=== PATIENT | female | born 1985 | race Caucasian/White ===

== ENCOUNTER 2016-12-28 11:25 | Inpatient (IN) | payer OTHER ==
[2016-12-28 12:22] VITALS: BMI 26.1
--- NOTE | 2016-12-28 17:13 | HP ---
CIWA Score - CIWA Score Nausea/Vomitin-Mild Nausea/No Vomiting Muscle Tremors: 4-Moderate,w/Arms Extend Anxiety: 4-Mod. Anxious/Guarded Agitation: 4-Moderately Restless Paroxysmal Sweats: 3 Orientation: 0-Oriented Tacttile Disturbances: 0-None Auditory Disturbances: 0-None Visual Disturbances: 0-None Headache: 1-Very Mild CIWA-Ar Total Score: 17 Admission ROS BHS - HPI Chief Complaint: I was drinking so much that I passed out and was sent to the ED now I need detox. Allergies/Adverse Reactions: Allergies Allergy/AdvReac Type Severity Reaction Status Date / Time Fish Containing Products Allergy Intermediate Rash Verified 12/28/16 16:33 History of Present Illness: Pt is a 31yr old female with a history of alcohol dependence seeking detox for treatment. Pt states she had been drinking for a week and her mother found her passed out. Her mom send her to [facility] ED. pt was d/c yesterday and is her for detox. Exam Limitations: No Limitations - Ebola screening Have you traveled outside of the country in the last 21 days: No Have you had contact with anyone from an Ebola affected area: No Have you been sick,other than usual withdrawal symptoms: No Do you have a fever: No - Review of Systems Constitutional: Chills, Diaphoresis, Night Sweats, Changes in sleep EENT: reports: Tearing Respiratory: reports: No Symptoms reported Cardiac: reports: Lightheadedness, Syncope GI: reports: Diarrhea, Nausea, Poor Appetite, Poor Fluid Intake, Vomiting, Abdominal cramping : reports: No Symptoms Reported Musculoskeletal: reports: Back Pain, Joint Pain, Muscle Pain, Neck Pain Integumentary: reports: Flushing, Sweating Neuro: reports: Headache, Tingling, Tremors Endocrine: reports: Excessive Sweating, Flushing, Intolerance to Cold, Intolerance to Heat Hematology: reports: No Symptoms Reported Psychiatric: reports: Judgement Intact, Mood/Affect Appropiate, Orientated x3, Agitated, Anxious Other Systems: Reviewed and Negative Patient History - Patient Medical History Hx Anemia: No Hx Asthma: No Hx Chronic Obstructive Pulmonary Disease (COPD): No Hx Cancer: No Hx Cardiac Disorders: No Hx Congestive Heart Failure: No Hx Hypertension: No Hx Hypercholesterolemia: No Hx Pacemaker: No HX Cerebrovascular Accident: No Hx Seizures: No Hx Dementia: No Hx Diabetes: No Hx Gastrointestinal Disorders: No Hx Liver Disease: No Hx Genitourinary Disorders: No Hx Sexually Transmitted Disorders: No Hx Renal Disease (ESRD): No Hx Thyroid Disease: No Hx Human Immunodeficiency Virus (HIV): No (negative) Hx Hepatitis C: No (negative) Hx Depression: Yes Hx Suicide Attempt: Yes (tried to cut self years ago but denies any S/H ideation today) Hx Bipolar Disorder: No Hx Schizophrenia: No - Patient Surgical History Past Surgical History: No Hx Neurologic Surgery: No Hx Cataract Extraction: No Hx Cardiac Surgery: No Hx Lung Surgery: No Hx Breast Surgery: No Hx Breast Biopsy: No Hx Abdominal Surgery: No Hx Appendectomy: No Hx Cholecystectomy: No Hx Genitourinary Surgery: No Hx Section: No Hx Orthopedic Surgery: Yes (left hip fx plate placed 11/2015) Anesthesia Reaction: No - PPD History Previous Implant?: Yes Documented Results: Negative w/o proof PPD to be Administered?: Yes - Reproductive History Patient is a Female of Child Bearing Age (11 -55 yrs old): Yes Last Menstrual Period: 12/25/16 Patient : No - Smoking Cessation Smoking history: Current every day smoker Have you smoked in the past 12 months: Yes Aproximately how many cigarettes per day: 10 Cigars Per Day: 0 Hx Chewing Tobacco Use: No Initiated information on smoking cessation: Yes 'Breaking Loose' booklet given: 12/28/16 - Substance & Tx. History Hx Alcohol Use: Yes Hx Substance Use: No Substance Use Type: Alcohol Hx Substance Use Treatment: Yes - Substances Abused Alcohol Route: Oral Frequency: Daily Amount used: RUM- 1 LITRE Age of first use: 13 Date of Last Use: 12/28/16 Family Disease History - Family Disease History Family History: Denies Admission Physical Exam S - Vital Signs Vital Signs: Vital Signs - 24 hr 12/28/16 12:21 Temperature 99.1 F Pulse Rate 118 H Respiratory 20 Rate Blood Pressure 133/71 - Physical General Appearance: Yes: Appropriately Dressed, Moderate Distress, Tremorous, Irritable, Sweating, Anxious HEENTM: Yes: Normal Voice, Nasal Congestion Respiratory: Yes: Lungs Clear, Normal Breath Sounds, No Respiratory Distress Neck: Yes: No masses,lesions,Nodules Breast: Yes: Within Normal Limits Cardiology: Yes: Regular Rhythm, Regular Rate, S1, S2 Abdominal: Yes: Normal Bowel Sounds, Non Tender, Soft Genitourinary: Yes: Within Normal Limits Back: Yes: Normal Inspection Musculoskeletal: Yes: full range of Motion, Back pain Extremities: Yes: Normal Inspection, Non-Tender, Tremors Neurological: Yes: Fully Oriented, Alert, Normal Response Integumentary: Yes: Normal Color, Diaphoresis Lymphatic: Yes: Within Normal Limits - Diagnostic (1) Alcohol dependence with uncomplicated withdrawal Current Visit: Yes Status: Chronic (2) Nicotine dependence Current Visit: Yes Status: Chronic Qualifiers: Nicotine product type: cigarettes Substance use status: uncomplicated Qualified Code(s): F17.210 - Nicotine dependence, cigarettes, uncomplicated Cleared for Admission [facility] - Detox or Rehab [facility] Level of Care: Medically Managed Detox Regimen/Protocol: Librium [facility] Breath Alcohol Content Breath Alcohol Content: 0.066 Urine Pregancy Test - Result Urine Test Results: Negative- NO Line Present Urine Drug Screen - Results Drug Screen Negative: No Urine Drug Screen Results: BZO-Benzodiazepines, TCA-Tricyclic Antidepress
[2016-12-28] MEDS ORDERED: hydrOXYzine PAMOATE 50 MG CAPSULE (FP) PO PRN (17:26)
[2016-12-28] MEDS ORDERED: IBUPROFEN 400 MG TABLET (FP) PO PRN (17:26)
[2016-12-28] MEDS ORDERED: guaiFENesin/D-METHORPHAN HB 10 ML UNIT-DOSE CUPS PO PRN (17:26)
[2016-12-28] MEDS ORDERED: MAGNESIUM HYDROX 2400MG/30ML ORAL SUSPENSION 30 ML CUP PO PRN (17:26)
[2016-12-28] MEDS ORDERED: MAGNESIUM CITRATE 300 ML BOTTLE PO PRN (17:26)
[2016-12-28] MEDS ORDERED: P-EPHED 60MG/TRIPROLIDI 2.5MG TABLET PO PRN (17:26)
[2016-12-28] MEDS ORDERED: LOPERAMIDE HCL 2 MG CAPSULE PO PRN (17:26)
[2016-12-28] MEDS ORDERED: MAG HYDROX/AL HYDROX/SIMETH 30 ML UNIT-DOSE CUP PO PRN (17:26)
[2016-12-28] MEDS ORDERED: chlordiazePOXIDE HCL 25 MG CAPSULE PO ONE (17:26)
[2016-12-28] MEDS ORDERED: MENTHOL/PHENOL 1 EACH UD MM PRN (17:26)
[2016-12-28] MEDS ORDERED: ACETAMINOPHEN 325 MG TABLET (FP) PO PRN (17:26)
[2016-12-28] MEDS ORDERED: chlordiazePOXIDE HCL 25 MG CAPSULE PO PRN (17:26)
[2016-12-28] MEDS: chlordiazePOXIDE HCL 25 MG CAPSULE PO SCH ×2 (18:19→22:40)
[2016-12-28] MEDS: THIAMINE HCL 100 MG TABLET (FP) PO SCH (22:40)
[2016-12-28] MEDS: diphenhydrAMINE HCL 50 MG CAPSULE PO PRN (22:40)
[2016-12-29] MEDS: diphenhydrAMINE HCL 50 MG CAPSULE PO PRN (01:59)
[2016-12-29] MEDS: chlordiazePOXIDE HCL 25 MG CAPSULE PO SCH ×4 (05:27→22:28)
[2016-12-29] MEDS: NICOTINE 21 MG/24 HOURS TOPICAL PATCH TD SCH (10:43)
[2016-12-29] MEDS: PRENATAL VITAMINS W/ FOLIC ACID TABLET (FP) PO SCH (10:43)
[2016-12-29] MEDS: NICOTINE POLACRILEX 4 MG GUM BUC PRN ×2 (10:44→18:16)
[2016-12-29 11:08] LABS: MCH 31.7 pg (25.7-33.7); MCHC 33.6 g/dl (32.0-36.0); MEAN CELL VOLUME 94.4 fl (80-96); MEAN PLT VOLUME 7.4 fl (7.5-11.1); PLATELET COUNT 224 K/MM3 (134-434); RDW 13.6 % (11.6-15.6); WHITE BLOOD COUNT 6.2 K/mm3 (4.0-10.0)
[2016-12-29 11:09] LABS: ANION GAP 8 (8-16); CALCIUM 8.7 mg/dL (8.5-10.1); CO2 29 mmol/L (21-32); COCKROFT - GAULT 151.3255; CREATININE 0.6 mg/dL (0.55-1.02); GLUCOSE,RANDOM 89 mg/dL (74-106); SGOT/AST 80 U/L (15-37); SGPT/ALT 108 U/L (12-78)
[2016-12-29 11:11] LABS: ALK PHOS 91 U/L (45-117); BILIRUBIN,TOTAL 1.3 mg/dL (0.2-1.0); TOT PROT 6.8 g/dl (6.4-8.2)
--- NOTE | 2016-12-29 12:59 | PN ---
S CIWA - CIWA Score Nausea/Vomitin Muscle Tremors: 3 Anxiety: 3 Agitation: 3 Paroxysmal Sweats: 1-Minimal Palms Moist Orientation: 0-Oriented Tacttile Disturbances: 1-Very Mild Itch/Numbness Auditory Disturbances: 1-Very Mild Visual Disturbances: 1-Very Mild Sensitivity Headache: 2-Mild CIWA-Ar Total Score: 18 BHS Progress Note (SOAP) Subjective: ALERT,IRRITABLE,ANXIOUS,INTERRUPTED SLEEP,TREMOR Objective: 12/29/16 12:57 Vital Signs Temperature 98.4 F 12/29/16 11:05 Pulse Rate 93 H 12/29/16 11:05 Respiratory Rate 18 12/29/16 11:05 Blood Pressure 124/83 12/29/16 11:05 O2 Sat by Pulse Oximetry (%) EKG SINUS TACHYCARDIA 109/MIN NO CHEST PAIN,NO SOB,NO DIZZINESS Laboratory Last Values WBC 6.2 K/mm3 (4.0-10.0) 12/29/16 07:40 RBC 4.44 M/mm3 (3.60-5.2) 12/29/16 07:40 Hgb 14.1 GM/dL (10.7-15.3) 12/29/16 07:40 Hct 42.0 % (32.4-45.2) 12/29/16 07:40 MCV 94.4 fl (80-96) 12/29/16 07:40 MCHC 33.6 g/dl (32.0-36.0) 12/29/16 07:40 RDW 13.6 % (11.6-15.6) 12/29/16 07:40 Plt Count 224 K/MM3 (134-434) 12/29/16 07:40 MPV 7.4 fl (7.5-11.1) L 12/29/16 07:40 Sodium 136 mmol/L (136-145) 12/29/16 07:40 Potassium 3.8 mmol/L (3.5-5.1) 12/29/16 07:40 Chloride 99 mmol/L (98-107) 12/29/16 07:40 Carbon Dioxide 29 mmol/L (21-32) 12/29/16 07:40 Anion Gap 8 (8-16) 12/29/16 07:40 BUN 14 mg/dL (7-18) D 12/29/16 07:40 Creatinine 0.6 mg/dL (0.55-1.02) 12/29/16 07:40 Creat Clearance w eGFR > 60 (>60) 12/29/16 07:40 Random Glucose 89 mg/dL (74-106) 12/29/16 07:40 Calcium 8.7 mg/dL (8.5-10.1) 12/29/16 07:40 Total Bilirubin 1.3 mg/dL (0.2-1.0) H 12/29/16 07:40 AST 80 U/L (15-37) H D 12/29/16 07:40 ALT 108 U/L (12-78) H D 12/29/16 07:40 Alkaline Phosphatase 91 U/L (45-117) 12/29/16 07:40 Total Protein 6.8 g/dl (6.4-8.2) 12/29/16 07:40 Albumin 4.0 g/dl (3.4-5.0) 12/29/16 07:40 LABS PENDING Assessment: 12/29/16 12:59 WITHDRAWAL SYMPTOM Plan: CONTINUE DETOX
[2016-12-29 13:11] LABS: URINE APPEARANCE CLEAR; URINE BILIRUBIN NEGATIVE (NEGATIVE); URINE BLOOD NEGATIVE (NEGATIVE); URINE COLOR YELLOW; URINE GLUCOSE (UA) NEGATIVE (NEGATIVE); URINE KETONE TRACE (NEGATIVE); URINE LEUK ESTERASE NEGATIVE (NEGATIVE); URINE NITRITE NEGATIVE (NEGATIVE); URINE PROTEIN NEGATIVE (NEGATIVE); URINE UROBILINOGEN 2.0 E.U/dl E.U./dl (0.2-1.0)
--- NOTE | 2016-12-29 15:20 | CONSULT ---
[facility] Psychiatric Consult - Data Date of interview: 12/29/16 Admission source: [facility] Identifying data: Readmission to [facility] for this 31 y/o female seeking detox treatment,on ,for alcohol dependence.Patient is single,a mother of two,domiciled and employed. Substance Abuse History: - Smoking Cessation. Smoking history: Current every day smoker. Have you smoked in the past 12 months: Yes. Aproximately how many cigarettes per day: 10. Cigars Per Day: 0. Hx Chewing Tobacco Use: No. Initiated information on smoking cessation: Yes. 'Breaking Loose' booklet given : 12/28/16. - Substance & Tx. History. Hx Alcohol Use: Yes. Hx Substance Use : No. Substance Use Type: Alcohol. Hx Substance Use Treatment: Yes. - Substances Abused. Alcohol. Route: Oral. Frequency: Daily. Amount used: RUM- 1 LITRE. Age of first use: 13. Date of Last Use: 12/28/16. Confirmed by patient. Medical History: Patient endorses good general health at this time.Noted history of orthosurgery for fracture of left hip (plate in place since 11/2015). Psychiatric History: History of multiple psychiatric hospitalizations.Diagnosed with Bipolar Disorder and ADD (self-report).Known to [facility] in [place], [place].Ms Wong is currently getting psychiatric outpatient services from a private psychiatrist in [place], [place].Patient is maintained on a regimen of wellbutrin XL 150 mg/daily + seroquel 300 mg/hs + topamax 100 mg po bid. Patient reports that she decided not to take topamax (own volition).Adherent to seroquel and wellbutrin.She admits to a history of suicide attempt via self- mutilation (wrist-cutting) two years ago. Physical/Sexual Abuse/Trauma History: Not discussed in this interview. Additional Comment: Urine Drug Screen Results: BZO-Benzodiazepines, TCA- Tricyclic Antidepressant.Noted. Mental Status Exam - Mental Status Exam Alert and Oriented to: Time, Place, Person Cognitive Function: Good Patient Appearance: Well Groomed Mood: Anxious, Apprehensive Affect: Mood Congruent Patient Behavior: Fatigued, Appropriate, Cooperative Speech Pattern: Clear, Appropriate Voice Loudness: Normal Thought Process: Goal Oriented Thought Disorder: Not Present Hallucinations: Denies Suicidal Ideation: Denies Homicidal Ideation: Denies Insight/Judgement: Poor Sleep: Poorly, Difficulty falling asleep Appetite: Good Muscle strength/Tone: Normal Gait/Station: Normal Psychiatric Findings - Problem List ([place] 1, 2,3) (1) Alcohol dependence with uncomplicated withdrawal Current Visit: Yes Status: Acute (2) Nicotine dependence Current Visit: Yes Status: Acute Qualifiers: Nicotine product type: cigarettes Substance use status: uncomplicated Qualified Code(s): F17.210 - Nicotine dependence, cigarettes, uncomplicated (3) Bipolar II disorder Current Visit: Yes Status: Chronic (4) Insomnia Current Visit: Yes Status: Acute - Initial Treatment Plan Initial Treatment Plan: Psychoeducation.Detoxification.Medications : seroquel 200 mg po hs + wellbutrin XL 150 mg po daily.Side effects/benefits discussed with patient.Made aware of risk for oversedation/falls,metabolic syndrome, cardiovascular adverse events and involuntary movements (seroquel),seizures ( wellbutrin).Patient reports histoy of good tolerability/efficacy.Wants to resume these medications.Observation.Pharmacy claims are reviewed.Noted filled scripts for all three medications on 12/18/16 + 12/27/16 @ [facility] # [id number] Desean Jackson.NO scripts necessary at discharge.
[2016-12-29] MEDS: QUEtiapine FUMARATE 200 MG TABLET PO SCH (22:28)
[2016-12-29] MEDS: THIAMINE HCL 100 MG TABLET (FP) PO SCH (22:28)
[2016-12-30] MEDS: chlordiazePOXIDE HCL 25 MG CAPSULE PO SCH ×2 (05:53→10:18)
[2016-12-30] MEDS: PRENATAL VITAMINS W/ FOLIC ACID TABLET (FP) PO SCH (10:18)
[2016-12-30] MEDS: NICOTINE 21 MG/24 HOURS TOPICAL PATCH TD SCH (10:19)
[2016-12-30] MEDS: NICOTINE POLACRILEX 4 MG GUM BUC PRN (10:20)
--- NOTE | 2016-12-30 13:59 | PN ---
S CIWA - CIWA Score Nausea/Vomitin Muscle Tremors: 3 Anxiety: 3 Agitation: 2 Paroxysmal Sweats: 1-Minimal Palms Moist Orientation: 0-Oriented Tacttile Disturbances: 1-Very Mild Itch/Numbness Auditory Disturbances: 1-Very Mild Visual Disturbances: 1-Very Mild Sensitivity Headache: 2-Mild CIWA-Ar Total Score: 17 BHS Progress Note (SOAP) Subjective: ALERT,IRRITABLE,ANXIOUS,INTERRUPTED SLEEP,TREMOR Objective: 12/30/16 13:57 Vital Signs Temperature 98.8 F 12/30/16 10:24 Pulse Rate 106 H 12/30/16 10:24 Respiratory Rate 18 12/30/16 10:24 Blood Pressure 117/76 12/30/16 10:24 O2 Sat by Pulse Oximetry (%) Laboratory Last Values WBC 6.2 K/mm3 (4.0-10.0) 12/29/16 07:40 RBC 4.44 M/mm3 (3.60-5.2) 12/29/16 07:40 Hgb 14.1 GM/dL (10.7-15.3) 12/29/16 07:40 Hct 42.0 % (32.4-45.2) 12/29/16 07:40 MCV 94.4 fl (80-96) 12/29/16 07:40 MCHC 33.6 g/dl (32.0-36.0) 12/29/16 07:40 RDW 13.6 % (11.6-15.6) 12/29/16 07:40 Plt Count 224 K/MM3 (134-434) 12/29/16 07:40 MPV 7.4 fl (7.5-11.1) L 12/29/16 07:40 Sodium 136 mmol/L (136-145) 12/29/16 07:40 Potassium 3.8 mmol/L (3.5-5.1) 12/29/16 07:40 Chloride 99 mmol/L (98-107) 12/29/16 07:40 Carbon Dioxide 29 mmol/L (21-32) 12/29/16 07:40 Anion Gap 8 (8-16) 12/29/16 07:40 BUN 14 mg/dL (7-18) D 12/29/16 07:40 Creatinine 0.6 mg/dL (0.55-1.02) 12/29/16 07:40 Creat Clearance w eGFR > 60 (>60) 12/29/16 07:40 Random Glucose 89 mg/dL (74-106) 12/29/16 07:40 Calcium 8.7 mg/dL (8.5-10.1) 12/29/16 07:40 Total Bilirubin 1.3 mg/dL (0.2-1.0) H 12/29/16 07:40 AST 80 U/L (15-37) H D 12/29/16 07:40 ALT 108 U/L (12-78) H D 12/29/16 07:40 Alkaline Phosphatase 91 U/L (45-117) 12/29/16 07:40 Total Protein 6.8 g/dl (6.4-8.2) 12/29/16 07:40 Albumin 4.0 g/dl (3.4-5.0) 12/29/16 07:40 Urine Color Yellow 12/29/16 11:30 Urine Appearance Clear 12/29/16 11:30 Urine pH 6.0 (5.0-8.0) D 12/29/16 11:30 Ur Specific [place] 1.021 (1.001-1.035) 12/29/16 11:30 Urine Protein Negative (NEGATIVE) 12/29/16 11:30 Urine Glucose (UA) Negative (NEGATIVE) 12/29/16 11:30 Urine Ketones Trace (NEGATIVE) H 12/29/16 11:30 Urine Blood Negative (NEGATIVE) 12/29/16 11:30 Urine Nitrite Negative (NEGATIVE) 12/29/16 11:30 Urine Bilirubin Negative (NEGATIVE) 12/29/16 11:30 Urine Urobilinogen 2.0 e.u/dl E.U./dl (0.2-1.0) H 12/29/16 11:30 Ur Leukocyte Esterase Negative (NEGATIVE) 12/29/16 11:30 RPR Titer Nonreactive (NONREACTIVE) 12/29/16 07:40 Assessment: 12/30/16 13:58 WITHDRAWAL SYMPTOM Plan: CONTINUE DETOX
[2016-12-30] MEDS: chlordiazePOXIDE 5 MG CAPSULE PO SCH ×2 (16:49→22:05)
[2016-12-30] MEDS: THIAMINE HCL 100 MG TABLET (FP) PO SCH (22:05)
[2016-12-30] MEDS: QUEtiapine FUMARATE 200 MG TABLET PO SCH (22:05)
[2016-12-30] MEDS: diphenhydrAMINE HCL 50 MG CAPSULE PO PRN (22:06)
--- NOTE | 2016-12-31 00:14 | EKG ---
Test Reason : Blood Pressure : / mmHG Vent. Rate : 109 BPM Atrial Rate : 109 BPM P-R Int : 144 ms QRS Dur : 084 ms QT Int : 330 ms P-R-T Axes : 066 073 051 degrees QTc Int : 444 ms SINUS TACHYCARDIA OTHERWISE NORMAL ECG WHEN COMPARED WITH ECG OF 30-DEC-2013 18:30, NO SIGNIFICANT CHANGE WAS FOUND Confirmed by DARNELL SHANKAR MD ([id number]) on 12/31/2016 12:14:10 AM Referred By: Confirmed By:DARNELL SHANKAR MD
[2016-12-31] MEDS: chlordiazePOXIDE 5 MG CAPSULE PO SCH ×2 (05:28→10:31)
--- NOTE | 2016-12-31 10:13 | PN ---
BHS Progress Note (SOAP) Subjective: sweats Objective: 12/31/16 10:12 Vital Signs Temperature 97.5 F L 12/31/16 06:00 Pulse Rate 89 12/31/16 06:00 Respiratory Rate 18 12/31/16 06:00 Blood Pressure 110/71 12/31/16 06:00 O2 Sat by Pulse Oximetry (%) awake/alert ambulating no acute distress Assessment: 12/31/16 10:12 withdrawal sx Plan: continue detox increase fluids d/c in am
[2016-12-31] MEDS: PRENATAL VITAMINS W/ FOLIC ACID TABLET (FP) PO SCH (10:31)
[2016-12-31] MEDS: NICOTINE POLACRILEX 4 MG GUM BUC PRN (10:32)
[2016-12-31] MEDS: NICOTINE 21 MG/24 HOURS TOPICAL PATCH TD SCH (10:32)
[2016-12-31] MEDS: chlordiazePOXIDE HCL 10 MG CAPSULE PO SCH ×2 (17:30→22:28)
[2016-12-31] MEDS: THIAMINE HCL 100 MG TABLET (FP) PO SCH (22:13)
[2016-12-31] MEDS: QUEtiapine FUMARATE 200 MG TABLET PO SCH (22:14)
[2016-12-31] MEDS: diphenhydrAMINE HCL 50 MG CAPSULE PO PRN (22:14)
[2017-01-01] MEDS: chlordiazePOXIDE HCL 10 MG CAPSULE PO SCH ×2 (05:39→10:27)
[2017-01-01 06:32] VITALS: BP 104/66; PULSE 92; TEMP 97.5
[2017-01-01] MEDS: PRENATAL VITAMINS W/ FOLIC ACID TABLET (FP) PO SCH (10:26)
[2017-01-01] MEDS: NICOTINE POLACRILEX 4 MG GUM BUC PRN (10:27)
--- NOTE | 2017-01-01 11:05 | DS ---
[facility] Discharge Summary Admission Date: 12/28/16 Discharge Date: 01/01/17 - History Present History: Alcohol Dependence - Physical Exam Results Vital Signs: Vital Signs Temperature 97.5 F L 01/01/17 06:00 Pulse Rate 92 H 01/01/17 06:00 Respiratory Rate 18 01/01/17 06:00 Blood Pressure 104/66 01/01/17 06:00 O2 Sat by Pulse Oximetry (%) - Treatment Hospital Course: Detox Protocol Followed, Detoxed Safely, Responded well, Discharged Condition Good - Medication Discharge Medications: Ambulatory Orders Quetiapine Fumarate [Seroquel -] 300 mg PO HS #30 tablet 12/31/13 Bupropion HCl [Wellbutrin Xl -] 150 mg PO DAILY #30 tab.sr.24h 05/10/15 Quetiapine Fumarate [Seroquel -] 200 mg PO HS #30 tablet 05/10/15 Topiramate [Topamax -] 100 mg PO BID #60 tablet 05/10/15 Clonidine HCl [Catapres -] 0.1 mg PO HS #7 tablet 05/13/15 Thiamine HCl [Vitamin B1 -] 100 mg PO HS #30 tablet 05/13/15 - AMA Did Patient Leave Against Medical Advice: No
[2017-01-01] MEDS: NICOTINE 21 MG/24 HOURS TOPICAL PATCH TD SCH (11:31)
== END 2017-01-01 11:44 | disposition other institution (70) | DRG 775 ==
LOC: YASAS 11:25 → Y6N 16:59
PROVIDERS: ADMIT Internal Medicine; ATTEND Internal Medicine
PROC: HZ2ZZZZ Detoxification Services for Substance Abuse Treatment (ICD-10-PCS; principal; 2017-01-01)
DX: F10.230 Alcohol dependence with withdrawal, uncomplicated (principal); F17.210 Nicotine dependence, cigarettes, uncomplicated; F31.81 Bipolar II disorder; F32.9 Major depressive disorder, single episode, unspecified; G47.00 Insomnia, unspecified
CPT/HCPCS: 36415; 80053; 81003; 85027; 86593; 93005; 93010

== ENCOUNTER 2017-01-01 11:46 | Inpatient (IN) | payer OTHER ==
[2017-01-01] MEDS ORDERED: MAGNESIUM CITRATE 300 ML BOTTLE PO PRN (12:40)
[2017-01-01] MEDS ORDERED: MAGNESIUM HYDROX 2400MG/30ML ORAL SUSPENSION 30 ML CUP PO PRN (12:40)
[2017-01-01] MEDS ORDERED: MENTHOL/PHENOL 1 EACH UD MM PRN (12:40)
[2017-01-01] MEDS ORDERED: IBUPROFEN 400 MG TABLET (FP) PO PRN (12:40)
[2017-01-01] MEDS ORDERED: guaiFENesin/D-METHORPHAN HB 10 ML UNIT-DOSE CUPS PO PRN (12:40)
[2017-01-01] MEDS ORDERED: MAG HYDROX/AL HYDROX/SIMETH 30 ML UNIT-DOSE CUP PO PRN (12:40)
[2017-01-01] MEDS ORDERED: LOPERAMIDE HCL 2 MG CAPSULE PO PRN (12:40)
[2017-01-01] MEDS ORDERED: ACETAMINOPHEN 325 MG TABLET (FP) PO PRN (12:40)
[2017-01-01] MEDS ORDERED: P-EPHED 60MG/TRIPROLIDI 2.5MG TABLET PO PRN (12:40)
--- NOTE | 2017-01-01 12:44 | HP ---
[facility] Rehab Assess/Revision - Admission History Admitted to Rehab from: [facility] Date of Admission to Rehab: 01/01/17 - Vital signs Vital Signs: Vital Signs Period Temp Pulse Resp BP Sys/Martinez Pulse Ox Last 24 Hr 98.4 F 91 18 124/90 - Findings Detox History & Physical reviewed: Yes Concur with findings: Yes
[2017-01-01] MEDS: THIAMINE HCL 100 MG TABLET (FP) PO SCH (21:11)
[2017-01-01] MEDS: QUEtiapine FUMARATE 200 MG TABLET PO SCH (21:11)
[2017-01-01] MEDS: COLLOIDAL OATMEAL 1 BAR EACH TP PRN (21:12)
[2017-01-01] MEDS ORDERED: PT OWN MED DRAWER 7, Y5N ONE (23:52)
[2017-01-02] MEDS ORDERED: PT OWN MED DRAWER 7, Y5N ONE (08:56)
[2017-01-02] MEDS: PRENATAL VITAMINS W/ FOLIC ACID TABLET (FP) PO SCH (09:49)
[2017-01-02] MEDS: CALCIUM 500MG/VIT-D 200 UNITS COMBO TABLET (FP) PO SCH (09:50)
--- NOTE | 2017-01-02 14:08 | HP ---
Psychiatrist Admission - Data Date of interview: 01/02/17 Admission source: [address] [place] [address] Identifying data: This is the first admission to [address] [place] [address] for this 31 years old single mother of 2 (11 and 5 yo girls) .Children reside with the patient 's mother.Patient resides with family,used to work in [employer]. Medical History: S/P hip fracture. Psychiatric History: First contact with psychiatrist was at 15 years old to address depressed mood,anxiety,drug use on outpatient basis.She was seen by private psychiatrist and placed on Xanax and something else.PAtient reports first psychiatric hospitslization at 22 years old due to severe depression,drug abuse.PAtient was dx with Bipolar II Disorder.She reports 5 more psychiatric hospitalizations,most recent admission was last year to [facility].Denies any suicidal attempts,but reports self self mutilation by cutting herself superficially.Patient sees at [facility] in private psychiatric office .Current meds:Wellbutrin XL 150 po am, and Seroquel 300 mg po hs,Topamax 100 mg po bid. Physical/Sexual Abuse/Trauma History: denies Vital Signs: Vital Signs - 24 hr 01/02/17 01/02/17 03:30 06:49 Temperature 97.9 F Pulse Rate 98 H Respiratory 16 18 Rate Blood Pressure 106/67 Allergies/Adverse Reactions: Allergies Allergy/AdvReac Type Severity Reaction Status Date / Time Fish Containing Products Allergy Intermediate Rash Verified 01/01/17 12:20 Date of last physical exam: 01/01/17 Concur with the findings of this exam: Yes - Substance Abuse/Tx History Hx Alcohol Use: Yes (reports drinking since 13 yo,heavy binge drinker) Hx Substance Use: Yes (cocaine/opioid dependence in remission) Substance Use Type: Alcohol, Cocaine, Heroin Hx Substance Use Treatment: Yes (completed 28 days inpatient ,then 9 months program 1 yo) - Admission Criteria Previous failed treatment: Yes Poor recovery environment: Yes Comorbidities: Yes Lacks judgement: Yes Mental Status Exam - Mental Status Exam Alert and Oriented to: Time, Place, Person Cognitive Function: Grossly Intact Patient Appearance: Well Groomed Mood: Sad Affect: Mood Congruent, Labile Patient Behavior: Cooperative Speech Pattern: Clear Voice Loudness: Normal Thought Process: Goal Oriented Thought Disorder: Not Present Hallucinations: Denies Suicidal Ideation: Denies Homicidal Ideation: Denies Insight/Judgement: Fair Sleep: Fair Appetite: Good Muscle strength/Tone: Normal Gait/Station: Normal Psychiatric Findings - Problem List ([place] 1, 2,3) (1) Alcohol dependence with uncomplicated withdrawal Current Visit: Yes Status: Chronic (2) Nicotine dependence Current Visit: Yes Status: Chronic Qualifiers: Nicotine product type: cigarettes Substance use status: uncomplicated Qualified Code(s): F17.210 - Nicotine dependence, cigarettes, uncomplicated (3) Bipolar II disorder Current Visit: Yes Status: Chronic (4) Cocaine dependence in remission Current Visit: Yes Status: Chronic (5) Opioid dependence in remission Current Visit: Yes Status: Chronic (6) Hip fracture Current Visit: Yes Status: Inactive - Initial Treatment Plan Initial Treatment Plan: Continue current medications as per plan. Will monitor progress.
[2017-01-02] MEDS: NICOTINE POLACRILEX 2 MG GUM BUC PRN (14:28)
[2017-01-02] MEDS: QUEtiapine FUMARATE 200 MG TABLET PO SCH (21:11)
[2017-01-02] MEDS: THIAMINE HCL 100 MG TABLET (FP) PO SCH (21:11)
[2017-01-02] MEDS: TOPIRAMATE 100 MG TABLET PO SCH (21:12)
[2017-01-03] MEDS: CALCIUM 500MG/VIT-D 200 UNITS COMBO TABLET (FP) PO SCH (09:44)
[2017-01-03] MEDS: PRENATAL VITAMINS W/ FOLIC ACID TABLET (FP) PO SCH (09:45)
[2017-01-03] MEDS: TOPIRAMATE 100 MG TABLET PO SCH ×2 (09:45→21:16)
[2017-01-03] MEDS: BISACODYL 5 MG TABLET.DR (FP) PO SCH (15:04)
[2017-01-03] MEDS: NICOTINE POLACRILEX 2 MG GUM BUC PRN (18:53)
[2017-01-03] MEDS: THIAMINE HCL 100 MG TABLET (FP) PO SCH (21:16)
[2017-01-03] MEDS: QUEtiapine FUMARATE 200 MG TABLET PO SCH (21:16)
[2017-01-04] MEDS ORDERED: PT OWN MED DRAWER 7, Y5N ONE (08:14)
[2017-01-04] MEDS: TOPIRAMATE 100 MG TABLET PO SCH ×2 (09:43→21:15)
[2017-01-04] MEDS: CALCIUM 500MG/VIT-D 200 UNITS COMBO TABLET (FP) PO SCH (09:43)
[2017-01-04] MEDS: PRENATAL VITAMINS W/ FOLIC ACID TABLET (FP) PO SCH (09:43)
[2017-01-04] MEDS: BISACODYL 5 MG TABLET.DR (FP) PO SCH (09:45)
[2017-01-04] MEDS: NICOTINE POLACRILEX 2 MG GUM BUC PRN (09:45)
[2017-01-04] MEDS: THIAMINE HCL 100 MG TABLET (FP) PO SCH (21:15)
[2017-01-04] MEDS: QUEtiapine FUMARATE 200 MG TABLET PO SCH (21:15)
[2017-01-05] MEDS: CALCIUM 500MG/VIT-D 200 UNITS COMBO TABLET (FP) PO SCH (09:37)
[2017-01-05] MEDS: BISACODYL 5 MG TABLET.DR (FP) PO SCH (09:37)
[2017-01-05] MEDS: PRENATAL VITAMINS W/ FOLIC ACID TABLET (FP) PO SCH (09:37)
[2017-01-05] MEDS: TOPIRAMATE 100 MG TABLET PO SCH ×2 (09:38→21:32)
[2017-01-05] MEDS: QUEtiapine FUMARATE 200 MG TABLET PO SCH (21:32)
[2017-01-05] MEDS: THIAMINE HCL 100 MG TABLET (FP) PO SCH (21:32)
[2017-01-06] MEDS: BISACODYL 5 MG TABLET.DR (FP) PO SCH (09:51)
[2017-01-06] MEDS: CALCIUM 500MG/VIT-D 200 UNITS COMBO TABLET (FP) PO SCH (09:52)
[2017-01-06] MEDS: PRENATAL VITAMINS W/ FOLIC ACID TABLET (FP) PO SCH (09:52)
[2017-01-06] MEDS: TOPIRAMATE 100 MG TABLET PO SCH ×2 (09:52→21:13)
[2017-01-06] MEDS: NICOTINE POLACRILEX 2 MG GUM BUC PRN (09:53)
[2017-01-06] MEDS: COLLOIDAL OATMEAL 1 BAR EACH TP PRN (12:01)
[2017-01-06] MEDS: QUEtiapine FUMARATE 200 MG TABLET PO SCH (21:13)
[2017-01-06] MEDS: THIAMINE HCL 100 MG TABLET (FP) PO SCH (21:13)
[2017-01-07] MEDS: CALCIUM 500MG/VIT-D 200 UNITS COMBO TABLET (FP) PO SCH (09:54)
[2017-01-07] MEDS: BISACODYL 5 MG TABLET.DR (FP) PO SCH (09:54)
[2017-01-07] MEDS: PRENATAL VITAMINS W/ FOLIC ACID TABLET (FP) PO SCH (09:54)
[2017-01-07] MEDS: TOPIRAMATE 100 MG TABLET PO SCH ×2 (09:54→21:08)
[2017-01-07] MEDS: NICOTINE POLACRILEX 2 MG GUM BUC PRN (09:56)
[2017-01-07] MEDS: QUEtiapine FUMARATE 200 MG TABLET PO SCH (21:08)
[2017-01-07] MEDS: THIAMINE HCL 100 MG TABLET (FP) PO SCH (21:08)
[2017-01-08] MEDS: BISACODYL 5 MG TABLET.DR (FP) PO SCH (09:50)
[2017-01-08] MEDS: CALCIUM 500MG/VIT-D 200 UNITS COMBO TABLET (FP) PO SCH (09:51)
[2017-01-08] MEDS: PRENATAL VITAMINS W/ FOLIC ACID TABLET (FP) PO SCH (09:51)
[2017-01-08] MEDS: TOPIRAMATE 100 MG TABLET PO SCH ×2 (09:51→21:27)
[2017-01-08] MEDS: NICOTINE POLACRILEX 2 MG GUM BUC PRN (09:53)
[2017-01-08] MEDS: QUEtiapine FUMARATE 200 MG TABLET PO SCH (21:27)
[2017-01-08] MEDS: THIAMINE HCL 100 MG TABLET (FP) PO SCH (21:27)
[2017-01-09] MEDS: PRENATAL VITAMINS W/ FOLIC ACID TABLET (FP) PO SCH (09:50)
[2017-01-09] MEDS: TOPIRAMATE 100 MG TABLET PO SCH ×2 (09:50→21:19)
[2017-01-09] MEDS: CALCIUM 500MG/VIT-D 200 UNITS COMBO TABLET (FP) PO SCH (09:50)
[2017-01-09] MEDS: BISACODYL 5 MG TABLET.DR (FP) PO SCH (09:50)
[2017-01-09] MEDS: THIAMINE HCL 100 MG TABLET (FP) PO SCH (21:19)
[2017-01-09] MEDS: QUEtiapine FUMARATE 200 MG TABLET PO SCH (21:19)
[2017-01-09] MEDS: HYDROCORTISONE 1% TOPICAL CREAM 30 GM TUBE TP SCH (21:21)
[2017-01-10] MEDS: CALCIUM 500MG/VIT-D 200 UNITS COMBO TABLET (FP) PO SCH (09:56)
[2017-01-10] MEDS: BISACODYL 5 MG TABLET.DR (FP) PO SCH (09:56)
[2017-01-10] MEDS: PRENATAL VITAMINS W/ FOLIC ACID TABLET (FP) PO SCH (09:56)
[2017-01-10] MEDS: TOPIRAMATE 100 MG TABLET PO SCH ×2 (09:56→21:13)
[2017-01-10] MEDS: NICOTINE POLACRILEX 2 MG GUM BUC PRN (09:58)
[2017-01-10] MEDS: HYDROCORTISONE 1% TOPICAL CREAM 30 GM TUBE TP SCH ×2 (10:02→21:14)
[2017-01-10 10:30] LABS: ALBUMIN 4.3 g/dl (3.4-5.0); ALK PHOS 63 U/L (45-117); ANION GAP 12 (8-16); BILIRUBIN,TOTAL 0.4 mg/dL (0.2-1.0); CALCIUM 8.6 mg/dL (8.5-10.1); CO2 22 mmol/L (21-32); COCKROFT - GAULT 86.1645; GLUCOSE,RANDOM 77 mg/dL (74-106); SGOT/AST 20 U/L (15-37); SGPT/ALT 37 U/L (12-78); TOT PROT 6.9 g/dl (6.4-8.2)
[2017-01-10 11:53] LABS: HIV 1 & 2 AB NEGATIVE; HIV 1 AGp24 NEGATIVE
[2017-01-10] MEDS ORDERED: POTASSIUM CHLORIDE TABS 20 MEQ TABLET.ER (FP) PO ONE (12:37)
[2017-01-10] MEDS: QUEtiapine FUMARATE 200 MG TABLET PO SCH (21:13)
[2017-01-10] MEDS: THIAMINE HCL 100 MG TABLET (FP) PO SCH (21:13)
[2017-01-11] MEDS: PRENATAL VITAMINS W/ FOLIC ACID TABLET (FP) PO SCH (10:08)
[2017-01-11] MEDS: HYDROCORTISONE 1% TOPICAL CREAM 30 GM TUBE TP SCH ×2 (10:09→22:20)
[2017-01-11] MEDS: POTASSIUM CHLORIDE TABS 20 MEQ TABLET.ER (FP) PO SCH (10:09)
[2017-01-11] MEDS: CALCIUM 500MG/VIT-D 200 UNITS COMBO TABLET (FP) PO SCH (10:09)
[2017-01-11] MEDS: TOPIRAMATE 100 MG TABLET PO SCH ×2 (10:09→21:24)
[2017-01-11] MEDS: BISACODYL 5 MG TABLET.DR (FP) PO SCH (10:09)
[2017-01-11] MEDS: NICOTINE POLACRILEX 2 MG GUM BUC PRN (10:10)
[2017-01-11] MEDS: COLLOIDAL OATMEAL 1 BAR EACH TP PRN (18:49)
[2017-01-11] MEDS ORDERED: PT OWN MED DRAWER 7, Y5N ONE (19:27)
[2017-01-11] MEDS: THIAMINE HCL 100 MG TABLET (FP) PO SCH (21:24)
[2017-01-11] MEDS: QUEtiapine FUMARATE 200 MG TABLET PO SCH (21:24)
[2017-01-12] MEDS ORDERED: PT OWN MED DRAWER 7, Y5N ONE (08:35)
[2017-01-12] MEDS: BISACODYL 5 MG TABLET.DR (FP) PO SCH (09:36)
[2017-01-12] MEDS: HYDROCORTISONE 1% TOPICAL CREAM 30 GM TUBE TP SCH ×2 (09:36→21:19)
[2017-01-12] MEDS: CALCIUM 500MG/VIT-D 200 UNITS COMBO TABLET (FP) PO SCH (09:36)
[2017-01-12] MEDS: PRENATAL VITAMINS W/ FOLIC ACID TABLET (FP) PO SCH (09:36)
[2017-01-12] MEDS: POTASSIUM CHLORIDE TABS 20 MEQ TABLET.ER (FP) PO SCH (09:36)
[2017-01-12] MEDS: TOPIRAMATE 100 MG TABLET PO SCH ×2 (09:36→21:19)
[2017-01-12] MEDS: NICOTINE POLACRILEX 2 MG GUM BUC PRN (09:38)
[2017-01-12] MEDS: THIAMINE HCL 100 MG TABLET (FP) PO SCH (21:19)
[2017-01-12] MEDS: QUEtiapine FUMARATE 200 MG TABLET PO SCH (21:19)
[2017-01-13] MEDS: TOPIRAMATE 100 MG TABLET PO SCH ×2 (09:37→21:23)
[2017-01-13] MEDS: PRENATAL VITAMINS W/ FOLIC ACID TABLET (FP) PO SCH (09:37)
[2017-01-13] MEDS: CALCIUM 500MG/VIT-D 200 UNITS COMBO TABLET (FP) PO SCH (09:38)
[2017-01-13] MEDS: POTASSIUM CHLORIDE TABS 20 MEQ TABLET.ER (FP) PO SCH (09:38)
[2017-01-13] MEDS: BISACODYL 5 MG TABLET.DR (FP) PO SCH (09:38)
[2017-01-13] MEDS: HYDROCORTISONE 1% TOPICAL CREAM 30 GM TUBE TP SCH ×2 (09:38→21:24)
[2017-01-13] MEDS: NICOTINE POLACRILEX 2 MG GUM BUC PRN (09:41)
[2017-01-13] MEDS: QUEtiapine FUMARATE 200 MG TABLET PO SCH (21:23)
[2017-01-13] MEDS: diphenhydrAMINE HCL 50 MG CAPSULE PO PRN (21:23)
[2017-01-13] MEDS: THIAMINE HCL 100 MG TABLET (FP) PO SCH (21:23)
[2017-01-14] MEDS: BISACODYL 5 MG TABLET.DR (FP) PO SCH (09:45)
[2017-01-14] MEDS: CALCIUM 500MG/VIT-D 200 UNITS COMBO TABLET (FP) PO SCH (09:46)
[2017-01-14] MEDS: POTASSIUM CHLORIDE TABS 20 MEQ TABLET.ER (FP) PO SCH (09:47)
[2017-01-14] MEDS: PRENATAL VITAMINS W/ FOLIC ACID TABLET (FP) PO SCH (09:47)
[2017-01-14] MEDS: TOPIRAMATE 100 MG TABLET PO SCH ×2 (09:47→21:15)
[2017-01-14] MEDS: HYDROCORTISONE 1% TOPICAL CREAM 30 GM TUBE TP SCH ×2 (09:47→21:15)
[2017-01-14] MEDS: NICOTINE POLACRILEX 2 MG GUM BUC PRN (09:50)
[2017-01-14] MEDS: diphenhydrAMINE HCL 50 MG CAPSULE PO PRN (21:14)
[2017-01-14] MEDS: THIAMINE HCL 100 MG TABLET (FP) PO SCH (21:14)
[2017-01-14] MEDS: QUEtiapine FUMARATE 200 MG TABLET PO SCH (21:14)
[2017-01-15] MEDS: PRENATAL VITAMINS W/ FOLIC ACID TABLET (FP) PO SCH (09:55)
[2017-01-15] MEDS: TOPIRAMATE 100 MG TABLET PO SCH ×2 (09:55→21:09)
[2017-01-15] MEDS: POTASSIUM CHLORIDE TABS 20 MEQ TABLET.ER (FP) PO SCH (09:55)
[2017-01-15] MEDS: BISACODYL 5 MG TABLET.DR (FP) PO SCH (09:55)
[2017-01-15] MEDS: CALCIUM 500MG/VIT-D 200 UNITS COMBO TABLET (FP) PO SCH (09:55)
[2017-01-15] MEDS: HYDROCORTISONE 1% TOPICAL CREAM 30 GM TUBE TP SCH ×2 (09:56→21:09)
[2017-01-15] MEDS: NICOTINE POLACRILEX 2 MG GUM BUC PRN (09:57)
[2017-01-15] MEDS ORDERED: PT OWN MED DRAWER 7, Y5N ONE (20:28)
[2017-01-15] MEDS: QUEtiapine FUMARATE 200 MG TABLET PO SCH (21:09)
[2017-01-15] MEDS: diphenhydrAMINE HCL 50 MG CAPSULE PO PRN (21:09)
[2017-01-15] MEDS: THIAMINE HCL 100 MG TABLET (FP) PO SCH (21:09)
[2017-01-16] MEDS ORDERED: PT OWN MED DRAWER 7, Y5N ONE (08:31)
[2017-01-16] MEDS: PRENATAL VITAMINS W/ FOLIC ACID TABLET (FP) PO SCH (09:59)
[2017-01-16] MEDS: CALCIUM 500MG/VIT-D 200 UNITS COMBO TABLET (FP) PO SCH (09:59)
[2017-01-16] MEDS: TOPIRAMATE 100 MG TABLET PO SCH ×2 (09:59→21:12)
[2017-01-16] MEDS: BISACODYL 5 MG TABLET.DR (FP) PO SCH (10:00)
[2017-01-16] MEDS: POTASSIUM CHLORIDE TABS 20 MEQ TABLET.ER (FP) PO SCH (10:01)
[2017-01-16] MEDS: HYDROCORTISONE 1% TOPICAL CREAM 30 GM TUBE TP SCH ×2 (10:01→21:13)
[2017-01-16] MEDS: NICOTINE POLACRILEX 2 MG GUM BUC PRN (10:01)
--- NOTE | 2017-01-16 11:01 | PN ---
Psychiatric Progress Note Vital Signs: Vital Signs Period Temp Pulse Resp BP Sys/Martinez Pulse Ox Last 24 Hr 97.7 F 88-90 16-18 107-119/65-66 Date of Session: 01/16/17 Chief Complaint:: Discharge visit HPI: Alcohol,Cocaine and Opioid dpendence comorbid with Bipolar II Disorder. ROS: H/O Hip fracture. Current Medications: Active Medications Generic Name Dose Route Start Last Admin Trade Name Freq PRN Reason Stop Dose Admin Acetaminophen 650 mg 01/01/17 12:40 01/11/17 21:24 Tylenol - PO 650 mg Q4H PRN Administration FEVER OR PAIN Al Hydroxide/Mg Hydroxide 30 ml 01/01/17 12:40 Mylanta Oral Suspension - PO Q6H PRN DYSPEPSIA Bisacodyl 10 mg 01/03/17 14:45 01/16/17 10:00 Dulcolax - PO 10 mg DAILY GIRISH Administration Bupropion HCl 150 mg 01/02/17 10:00 01/16/17 09:59 Wellbutrin Xl - PO 150 mg DAILY GIRISH Administration Calcium Carbonate/Cholecalciferol 1 tab 01/04/17 10:00 01/16/17 09:59 Os-Marco 500+D - PO 1 tab DAILY GIRISH Administration Colloidal Oatmeal 1 applic 01/01/17 12:40 01/11/17 18:49 Aveeno Soap - TP 1 bar DAILY PRN Administration HYGEINE Diphenhydramine HCl 50 mg 01/01/17 12:40 01/15/17 21:09 Benadryl - PO 50 mg HSMR1 PRN Administration FOR ITCHING Eucalyptus/Menthol/Phenol/Sorbitol 1 each 01/01/17 12:40 Cepastat Lozenge - MM Q4H PRN SORE THROAT Guaifenesin 10 ml 01/01/17 12:40 Robitussin Dm - PO Q6H PRN COUGH Hydrocortisone 1 applic 01/09/17 22:00 01/16/17 10:01 Hytone 1% Cream - TP 1 applic BID GIRISH Administration Ibuprofen 400 mg 01/01/17 12:40 Motrin - PO Q6H PRN PAIN Loperamide HCl 4 mg 01/01/17 12:40 Imodium - PO Q6H PRN DIARRHEA Magnesium Hydroxide 30 ml 01/01/17 12:40 01/02/17 09:52 Milk Of Magnesia - PO 30 ml DAILY PRN Administration CONSTIPATION Nicotine Polacrilex 2 mg 01/01/17 12:40 01/16/17 10:01 Nicorette Gum - BUC 2 mg Q2H PRN Administration NICOTINE REPLACEMENT RX Potassium Chloride 20 meq 01/11/17 10:00 01/16/17 10:01 K-Dur - PO Not Given DAILY GIRISH Multivit/Folic Acid/Iron 1 tab 01/02/17 10:00 01/16/17 09:59 Vitamins (Sjr) - PO 1 tab DAILY GIRISH Administration Pseudoephedrine/Triprolidine 1 combo 01/01/17 12:40 Actifed - PO TID PRN NASAL CONGESTION Quetiapine Fumarate 200 mg 01/01/17 22:00 01/15/17 21:09 Seroquel - PO 200 mg HS GIRISH Administration Thiamine HCl 100 mg 01/01/17 22:00 01/15/17 21:09 Vitamin B1 - PO 100 mg HS GIRISH Administration Topiramate 100 mg 01/02/17 22:00 01/16/17 09:59 Topamax - PO 100 mg BID GIRISH Administration Current Side Effect: No Lab tests ordered: No Lab tests reviewed: Yes Provider note:: Patient will complete this program tomorrow 01/17/17.She has met her treatment goals and will continue to address her issues on outpatient basis at [facility] in [facility].Patient continues to find that Topamax 100 mg po bid,Wellbutrin XL 150 mg po and and Seroquel 200 mg po hs help to reduce her anxiety,mood instability,depression and sleeping difficulties.Scripts for 30 days provided. Supportive therapy provided focusing on support system,coping skills utilization to maintain recovery. Patient is stable for discharge tomorrow 01/17/17. Total face to face time:: 30 Mental Status Exam - Mental Status Exam Alert and Oriented to: Time, Place, Person Cognitive Function: Grossly Intact Patient Appearance: Well Groomed Mood: Hopeful, Euthymic Affect: Appropriate, Mood Congruent, Normal Range Patient Behavior: Cooperative Speech Pattern: Clear Voice Loudness: Normal Thought Process: Goal Oriented Thought Disorder: Not Present Hallucinations: Denies Suicidal Ideation: Denies Homicidal Ideation: Denies Insight/Judgement: Fair Sleep: Fair Appetite: Fair Muscle strength/Tone: Normal Gait/Station: Normal Psychiatric Treatment Plan - Problem List (1) Alcohol dependence with uncomplicated withdrawal Current Visit: Yes (2) Nicotine dependence Current Visit: Yes Qualifiers: Nicotine product type: cigarettes Substance use status: uncomplicated Qualified Code(s): F17.210 - Nicotine dependence, cigarettes, uncomplicated (3) Bipolar II disorder Current Visit: Yes (4) Cocaine dependence in remission Current Visit: Yes (5) Opioid dependence in remission Current Visit: Yes (6) Hip fracture Current Visit: Yes
--- NOTE | 2017-01-16 12:04 | PN ---
[facility] Progress Note Note: patient complaining of pain in right knee,no obvious trauma,history of left hip surgery, ambulation ok,stated doing some exercise, ambulation ok movement of knee no limitation impression r/o train of right knee no calf tenderness advise motrin 400 mgs po q 6 hrs prn follow up with own pmd and sport medicine physician
[2017-01-16] MEDS: QUEtiapine FUMARATE 200 MG TABLET PO SCH (21:12)
[2017-01-16] MEDS: diphenhydrAMINE HCL 50 MG CAPSULE PO PRN (21:12)
[2017-01-16] MEDS: THIAMINE HCL 100 MG TABLET (FP) PO SCH (21:12)
[2017-01-17 06:41] VITALS: BP 109/68; PULSE 78; TEMP 98
[2017-01-17] MEDS ORDERED: PT OWN MED DRAWER 7, Y5N ONE (09:03)
[2017-01-17] MEDS: PRENATAL VITAMINS W/ FOLIC ACID TABLET (FP) PO SCH (09:04)
[2017-01-17] MEDS: CALCIUM 500MG/VIT-D 200 UNITS COMBO TABLET (FP) PO SCH (09:04)
[2017-01-17] MEDS: TOPIRAMATE 100 MG TABLET PO SCH (09:04)
[2017-01-17] MEDS: BISACODYL 5 MG TABLET.DR (FP) PO SCH (09:05)
[2017-01-17] MEDS: POTASSIUM CHLORIDE TABS 20 MEQ TABLET.ER (FP) PO SCH (09:05)
[2017-01-17] MEDS: HYDROCORTISONE 1% TOPICAL CREAM 30 GM TUBE TP SCH (09:05)
== END 2017-01-17 09:15 | disposition home or self-care (01) | DRG 772 ==
LOC: YASAS 11:46 → Y3E 11:48
PROVIDERS: ADMIT Psychiatry & Neurology Psychiatry; ATTEND Psychiatry & Neurology Psychiatry
PROC: HZ42ZZZ Group Counseling for Substance Abuse Treatment, Cognitive-Behavioral (ICD-10-PCS; principal; 2017-01-17)
DX: F11.20 Opioid dependence, uncomplicated (principal); F10.230 Alcohol dependence with withdrawal, uncomplicated; F14.20 Cocaine dependence, uncomplicated; F17.210 Nicotine dependence, cigarettes, uncomplicated; F31.81 Bipolar II disorder; Z87.81 Personal history of (healed) traumatic fracture
CPT/HCPCS: 36415; 80053; 87389